=== PATIENT | male | born 1970 | race Caucasian/White ===

== ENCOUNTER → 2023-08-15 17:00 | Outpatient (RCR) | payer MEDICAID, MEDICARE, OTHER, SELFPAY | END | disposition home or self-care (01) | LOC: HO.WCC 06-24 13:58 | PROVIDERS: Visit Provider Surgery | DX: E11.622 Type 2 diabetes mellitus with other skin ulcer (principal); L89.153 Pressure ulcer of sacral region, stage 3; S21.109D Unspecified open wound of unspecified front wall of thorax without penetration into thoracic cavity, subsequent encounter; S31.819D Unspecified open wound of right buttock, subsequent encounter; T81.31XD Disruption of external operation (surgical) wound, not elsewhere classified, subsequent encounter; E11.40 Type 2 diabetes mellitus with diabetic neuropathy, unspecified; B35.6 Tinea cruris; L30.9 Dermatitis, unspecified; Z87.891 Personal history of nicotine dependence | CPT/HCPCS: 11042; 11045; 15271; 17250; 87070; 87071; 87073; 87077; 87147; 87186; 87205; 97597; 97602; 99212; 99213; 99214; 99215; Q4187 ==